=== PATIENT | female | born 1930 | race Caucasian/White ===

== ENCOUNTER 2016-09-25 13:32 | Emergency (ER) | payer OTHER ==
[2016-09-25 13:37] VITALS: TEMP 98.2; BMI 24.5
--- NOTE | 2016-09-25 14:21 | PDOC ---
History of Present Illness - General Chief Complaint: Chest Pain Stated Complaint: CHEST PAIN, LT ARM PAIN Time Seen by Provider: 09/25/16 14:06 History Source: Patient Exam Limitations: No Limitations - History of Present Illness Initial Comments: CHIEF COMPLAINT: 86 y/o afebrile female with PMH alzheimer's, HTN, HLD, hypothyroidism BIB daughter for left shoulder pain. HISTORY OF PRESENT ILLNESS: Daughter states the patient has been c/o left shoulder pain for the past 2 weeks. She gave her tylenol yesterday and it seemed to help but when she woke up this morning she was in a lot of pain. the patient's daughter denies fever, cough, trauma to shoulder, fall, CP, SOB. Vital signs on arrival are within normal limits. REVIEW OF SYSTEMS: GENERAL/CONSTITUTIONAL: No fever/chills. No weakness. No weight change. HEAD, EYES, EARS, NOSE AND THROAT: No change in vision. No ear pain or discharge. No sore throat. CARDIOVASCULAR: No chest pain or shortness of breath. RESPIRATORY: No cough, wheezing, or hemoptysis. GASTROINTESTINAL: No abd pain, nausea, vomiting, diarrhea. GENITOURINARY: No dysuria, frequency, or change in urination. MUSCULOSKELETAL: +left shoulder pain. No neck or back pain. SKIN: No rash or easy bruising. PHYSICAL EXAM: GENERAL: The patient is awake, alert, and fully oriented, in no acute distress. HEAD: Normal with no signs of trauma. ENT: Pupils equal, round and reactive to light, extraocular movements intact, sclera anicteric, conjunctiva clear. Neck supple. No midline cervical spine TTP. LUNGS: Clear to auscultation bilaterally. Normal excursion. No respiratory distress or use of accessory muscles. CV: RRR, S1/S2, no MRG. Cap refill < 2 sec. ABDOMEN: Soft, non-distended, non-tender even to deep palpation, no hepatomegaly or splenomegaly, no masses. EXTREMITIES: Pain with palpation of left AC joint. Pt cannot abduct her left arm > 90 degrees secondary to pain. NEUROLOGICAL: Normal speech, normal gait. CN II-XII grossly intact. PSYCH: Normal mood, normal affect. SKIN: Warm, dry, normal turgor, no rashes or lesions noted. Past History - Past Medical History Allergies/Adverse Reactions: Allergies Allergy/AdvReac Type Severity Reaction Status Date / Time No Known Allergies Allergy Verified 09/25/16 13:38 Home Medications: Ambulatory Orders Aspirin Chewable [May Children's Aspirin] 81 mg PO DAILY 02/04/12 Simvastatin 40 mg PO HS 02/04/12 Atenolol 50 mg PO DAILY #0 tablet 02/07/12 Cetirizine HCl [Zyrtec -] 10 mg PO DAILY 04/14/16 Escitalopram Oxalate [Lexapro -] 10 mg PO DAILY 04/14/16 Rivastigmine [Exelon Patch 9.5 mg/24 Hours] 1 each TD DAILY 04/14/16 HTN: Yes Hypercholesterolemia: Yes - Psycho/Social/Smoking Cessation Hx Anxiety: No Suicidal Ideation: No Smoking Status: No Smoking History: Never smoked Have you smoked in the past 12 months: No Number of Cigarettes Smoked Daily: 0 Information on smoking cessation initiated: No Hx Alcohol Use: No Drug/Substance Use Hx: No Substance Use Type: None Hx Substance Use Treatment: No Cardiac Specific PMH - Complaint Specific PMHX Angina: No Cardiac Arrhythmia: No GERD: No Peripheral Vascular Disease: No *Physical Exam - Vital Signs Last Vital Signs Temp Pulse Resp BP Pulse Ox 98.2 F 71 18 150/71 99 09/25/16 13:34 09/25/16 13:34 09/25/16 13:34 09/25/16 13:34 09/25/16 13:34 Heart Score/ECG Review - ECG Intrepretation Comment:: Twelve-lead EKG was performed and reviewed by Dr. Quarles. There is normal sinus rhythm with a normal rate. The axis is normal. The intervals are normal. There are no ST or T wave abnormalities. Impression: Normal twelve-lead EKG ED Treatment Course - LABORATORY CBC & Chemistry Diagram: 09/25/16 14:40 09/25/16 14:40 - ADDITIONAL ORDERS Additional order review: Laboratory Results 09/25/16 14:40 Sodium 137 Potassium 4.1 Chloride 103 Carbon Dioxide 28 Anion Gap 6 L BUN 18 Creatinine 1.0 Creat Clearance w eGFR 52.82 Random Glucose 111 H D Calcium 9.1 Total Bilirubin 0.6 D AST 20 D ALT 21 D Alkaline Phosphatase 51 Creatine Kinase 114 Troponin I < 0.02 B-Natriuretic Peptide 899.09 H Total Protein 7.1 Albumin 3.7 09/25/16 14:40 RBC 4.12 MCV 94.3 MCHC 32.9 RDW 12.9 MPV 10.5 Neutrophils % 64.0 D Lymphocytes % 21.0 D Monocytes % 10.0 - Medications Given in the ED: ED Medications Discontinued Medications Generic Name Dose Route Start Last Admin Trade Name Veto PRN Reason Stop Dose Admin Ketorolac Tromethamine 30 mg 09/25/16 14:22 09/25/16 15:01 Toradol Injection - IVPUSH 09/25/16 14:23 30 mg ONCE ONE Administration Medical Decision Making - Medical Decision Making A/P: 86 y/o female with left shoulder injury. Most likely musculoskeletal in nature. Possibly rotator cuff strain. Plan is as follows: 1. IV toradol 2. labs 3. EKG EKG normal Labs unremarkable except for BNP of 899. No prior for comparison. The patient states she feels much better. Pt lying flat in the bed without SOB. She continues to deny CP, cough, hemoptysis. Will discharge her to home. Suggested she f/u with her PCP regarding her BNP. Instructed her daughter to give her the Meloxicam that her doctor prescribed to the patient for her shoulder pain and apply heat to the affected area to help with pain. Also instructed the daughter to make sure the patient moves her shoulder to prevent frozen shoulder. Instructed her to return to the ER with any worsening or concerning symptoms. The patient's daughter verbalizes understanding of all instructions, has no further questions and is awaiting discharge. *DC/Admit/Observation/Transfer Diagnosis at time of Disposition: Shoulder sprain or strain - Discharge Dispostion Disposition: HOME Condition at time of disposition: Improved - Referrals Referrals: Diana Espino [Primary Care Provider] - Call tomorrow - Patient Instructions Printed Discharge Instructions: DI for Shoulder Pain, DI for Shoulder Sprain Additional Instructions: Discharge Instructions: -Gave the patient her Meloxicam as prescribed daily for shoulder pain -Apply heat to the affected shoulder to help with pain -Follow up with her physician tomorrow -Return to the ER with any worsening or concerning symptoms.
[2016-09-25] MEDS ORDERED: KETOROLAC TROMETHAMINE 30 MG/1 ML VIAL IVPUSH ONE (14:22)
[2016-09-25] MEDS ORDERED: KETOROLAC TROMETHAMINE 30 MG/1 ML VIAL ONE (14:40)
[2016-09-25 14:59] LABS: MCHC 32.9 g/dl (32.0-36.0); MEAN CELL VOLUME 94.3 fl (80-96); MEAN PLT VOLUME 10.5 fl (7.5-11.1); PLATELET COUNT 162 K/MM3 (134-434); RDW 12.9 % (11.6-15.6); WHITE BLOOD COUNT 10.5 K/mm3 (4.0-10.0)
[2016-09-25 15:22] LABS: ALBUMIN 3.7 g/dl (3.4-5.0); ANION GAP 6 (8-16); BILIRUBIN,TOTAL 0.6 mg/dL (0.2-1.0); CALCIUM 9.1 mg/dL (8.5-10.1); CO2 28 mmol/L (21-32); GLUCOSE,RANDOM 111 mg/dL (74-106); SGOT/AST 20 U/L (15-37); SGPT/ALT 21 U/L (12-78)
[2016-09-25 15:25] LABS: ALK PHOS 51 U/L (45-117); TOT PROT 7.1 g/dl (6.4-8.2); TROPONIN I < 0.02 ng/ml (0.00-0.05)
[2016-09-25 15:53] LABS: METAMYELOCYTE 1 % (0-2); PLATELET ESTIMATE ADEQUATE (NORMAL)
[2016-09-25 16:50] VITALS: BP 149/68; PULSE 72
--- NOTE | 2016-09-26 09:48 | EKG ---
Test Reason : Blood Pressure : / mmHG Vent. Rate : 064 BPM Atrial Rate : 064 BPM P-R Int : 196 ms QRS Dur : 076 ms QT Int : 390 ms P-R-T Axes : 048 011 028 degrees QTc Int : 402 ms NORMAL SINUS RHYTHM NORMAL ECG WHEN COMPARED WITH ECG OF 29-MAR-2014 16:42, NO SIGNIFICANT CHANGE WAS FOUND Confirmed by ALISHA MULTANI MD ([id number]) on 09/26/2016 9:47:58 AM Referred By: Overread By: ALISHA MULTNAI MD
== END 2016-09-25 16:51 | disposition home or self-care (01) ==
LOC: JER 13:32
PROC: 3E0333Z Introduction of Anti-inflammatory into Peripheral Vein, Percutaneous Approach (ICD-10-PCS; principal; 2016-09-25)
DX: S43.492A Other sprain of left shoulder joint, initial encounter (principal); I10 Essential (primary) hypertension; E78.00 Pure hypercholesterolemia, unspecified; E03.9 Hypothyroidism, unspecified; G30.8 Other Alzheimer's disease; F02.80 Dementia in other diseases classified elsewhere, unspecified severity, without behavioral disturbance, psychotic disturbance, mood disturbance, and anxiety
CPT/HCPCS: 36415; 80053; 82550; 83880; 84484; 85025; 93005; 93010; 96374; 99282-25

== ENCOUNTER 2016-09-28 10:31 | Emergency (ER) | payer OTHER ==
[2016-09-28 10:37] VITALS: BP 146/63; PULSE 67; TEMP 98.1; BMI 23.8
--- NOTE | 2016-09-28 11:26 | PDOC ---
History of Present Illness - General Chief Complaint: Pain Stated Complaint: PAIN Time Seen by Provider: 09/28/16 11:21 History Source: Patient Exam Limitations: No Limitations - History of Present Illness Initial Comments: 09/28/16 11:45 \ 09/28/16 11:48 My Chief Complaint: left shoulder pain History of Present Illness: Pt. is a 86-year-old female with a history of hyperlipidemia, HTN and Alzheimer's here today with her daughter due to worsening left shoulder pain. Patient was seen a few days ago by orthopedist Dr. Oneal was given a cortisone shot according to daughter and left shoulder. Patient has been taking Mobic's once a day 7.5 mg without relief of pain. Daughter reports that she is not moving her left shoulder normally and when moving it she winces in pain. Patient has had no falls or any new injuries. Dr. Oneal told the daughter that it would take approximately one week for symptoms to be relieved. Gross deformity of left shoulder or left arm noted. 09/28/16 12:12 09/28/16 22:59 09/28/16 23:00 Timing/Duration: getting worse Severity: moderate Associated Symptoms: reports: other (left shoulder pain with decreased range of motion ) Past History - Past Medical History Allergies/Adverse Reactions: Allergies Allergy/AdvReac Type Severity Reaction Status Date / Time No Known Allergies Allergy Verified 09/28/16 10:36 Home Medications: Ambulatory Orders Aspirin Chewable [May Children's Aspirin] 81 mg PO DAILY 02/04/12 Simvastatin 40 mg PO HS 02/04/12 Atenolol 50 mg PO DAILY #0 tablet 02/07/12 Cetirizine HCl [Zyrtec -] 10 mg PO DAILY 04/14/16 Escitalopram Oxalate [Lexapro -] 10 mg PO DAILY 04/14/16 Rivastigmine [Exelon Patch 9.5 mg/24 Hours] 1 each TD DAILY 04/14/16 HTN: Yes Hypercholesterolemia: Yes - Psycho/Social/Smoking Cessation Hx Anxiety: No Suicidal Ideation: No Smoking Status: No Smoking History: Never smoked Have you smoked in the past 12 months: No Number of Cigarettes Smoked Daily: 0 Information on smoking cessation initiated: No Hx Alcohol Use: No Drug/Substance Use Hx: No Substance Use Type: None Hx Substance Use Treatment: No Review of Systems - Review of Systems Able to Perform ROS?: Yes Constitutional: No: Symptoms Reported HEENTM: No: Symptoms Reported Respiratory: No: Symptoms reported Cardiac (ROS): No: Symptoms Reported ABD/GI: No: Symptoms Reported Musculoskeletal: Yes: Joint Pain (left shoulder pain with decreased ROM in all directions ) Integumentary: No: Symptoms Reported *Physical Exam - Vital Signs Last Vital Signs Temp Pulse Resp BP Pulse Ox 98.1 F 67 18 146/63 99 09/28/16 10:35 09/28/16 10:35 09/28/16 10:35 09/28/16 10:35 09/28/16 10:35 - Physical Exam General Appearance: Yes: Appropriately Dressed Respiratory/Chest: positive: Lungs Clear, Normal Breath Sounds. negative: Chest Tender, Respiratory Distress Cardiovascular: positive: Regular Rhythm, Regular Rate, S1, S2 Comments:: 09/28/16 12:14 left radial pulse 4 + Extremity: positive: Normal Capillary Refill, Normal Inspection, Tender (left shoulder ). negative: Normal Range of Motion (left shoulder decreased range of motion in all directions ) Integumentary: positive: Normal Color Neurologic: positive: Alert, Normal Response, Responsive, Other (decreased range of motion left shoulder ) Medical Decision Making - Medical Decision Making 09/28/16 12:15 PLAN : xray left shoulder no fracture noted Degenerative changes possible jt effusion acetaminophen 650 mg po now follow up with ortho 09/28/16 12:[address] Lynch he recommends that mobic be increased from 7.5 mg daily to bid for one week follow up next week with 09/28/16 12:28 09/28/16 23:01 09/28/16 23:01 *DC/Admit/Observation/Transfer Diagnosis at time of Disposition: Shoulder joint painful on movement Qualifiers: Laterality: left Qualified Code(s): M25.512 - Pain in left shoulder - Discharge Dispostion Disposition: HOME Condition at time of disposition: Stable - Referrals Referrals: Diana Espino [Primary Care Provider] - Ronni Oneal MD [Staff Physician] - - Patient Instructions Additional Instructions: elevate on pillow at night follow up with Dr. Oneal in one week Increase Mobic to 7.5 mg twice daily take after eating she can take acetaminophen 650 mg every 6 hours as needed for pain if not better with increase of mobic Daughter voiced understanding of discharge instructions and all questions were answered
[2016-09-28] MEDS ORDERED: ACETAMINOPHEN 325 MG TABLET (FP) PO ONE (12:12)
[2016-09-28] MEDS ORDERED: ACETAMINOPHEN 325 MG TABLET (FP) ONE (12:21)
== END 2016-09-28 12:33 | disposition home or self-care (01) ==
LOC: JERFT 10:31
DX: M25.512 Pain in left shoulder (principal); I10 Essential (primary) hypertension; E78.00 Pure hypercholesterolemia, unspecified; G30.8 Other Alzheimer's disease; F02.80 Dementia in other diseases classified elsewhere, unspecified severity, without behavioral disturbance, psychotic disturbance, mood disturbance, and anxiety
CPT/HCPCS: 73030-TC-LT; 99281-25

== ENCOUNTER 2016-09-29 19:06 | Emergency (ER) | payer OTHER ==
[2016-09-29 19:44] VITALS: BP 148/72; PULSE 74; TEMP 98.2; BMI 24.5
--- NOTE | 2016-09-29 20:15 | PDOC ---
History of Present Illness - General History Source: Patient, Family Exam Limitations: Dementia - History of Present Illness Initial Comments: 09/29/16 21:53 The patient is an 86-year old-female, accompanied by family, with a significant past medical history of dementia(alzheimers), hypertension, hypercholesterolemia, and hypothyroidism, who presents to the emergency department with left arm pain that began 4 days ago. The patient reports that her pain radiates to her neck and down her left arm. As per daughter, the patient was brought to her orthopedist, Dr. Oneal, a few days ago, where she was administered a shot of cortisone. As per daughter, the patient was told to return in a month for another dose of cortisone if she experienced no relief. After no relief, the patient presented to the emergency department a day ago for similar pain. The patient reports pain upon movement of arm and does not report any alleviating factors. The patients daughter denies the patient has been experiencing any associated chest pain or shortness of breath. Since the onset of the pain, the patients daughter reports the patient has been experiencing decreased appetite. The patient also presents with a fever, but denies any chills, headache, or dizziness. She denies nausea, vomit, diarrhea and constipation. Allergies: None reported. Social History: No history of smoking, recreational drug use, or ETOH consumption PCP: Dr. Diana Espino <Chris Forbes - Last Filed: 09/29/16 21:52> <Krystle Howard - Last Filed: 09/30/16 01:15> - General Chief Complaint: Pain Stated Complaint: L SHOULDER PAIN Time Seen by Provider: 09/29/16 20:15 Past History <Chris Forbes - Last Filed: 09/29/16 21:52> - Past Medical History HTN: Yes Hypercholesterolemia: Yes - Psycho/Social/Smoking Cessation Hx Anxiety: No Suicidal Ideation: No Smoking Status: No Smoking History: Never smoked Have you smoked in the past 12 months: No Number of Cigarettes Smoked Daily: 0 Information on smoking cessation initiated: No Hx Alcohol Use: No Drug/Substance Use Hx: No Substance Use Type: None Hx Substance Use Treatment: No <Krystle Howard - Last Filed: 09/30/16 01:15> - Past Medical History Allergies/Adverse Reactions: Allergies Allergy/AdvReac Type Severity Reaction Status Date / Time No Known Allergies Allergy Verified 09/29/16 19:37 Home Medications: Ambulatory Orders Aspirin Chewable [May Children's Aspirin] 81 mg PO DAILY 02/04/12 Simvastatin 40 mg PO HS 02/04/12 Atenolol 50 mg PO DAILY #0 tablet 02/07/12 Cetirizine HCl [Zyrtec -] 10 mg PO DAILY 04/14/16 Escitalopram Oxalate [Lexapro -] 10 mg PO DAILY 04/14/16 Rivastigmine [Exelon Patch 9.5 mg/24 Hours] 1 each TD DAILY 04/14/16 Oxycodone HCl/Acetaminophen [Percocet 5/325 -] 1 tab PO Q6H #20 tablet MDD 4 03/10 Review of Systems - Review of Systems Able to Perform ROS?: Yes Comments:: 09/29/16 21:53 GENERAL/CONSTITUTIONAL: +Fever. No chills. No weakness. HEAD, EYES, EARS, NOSE AND THROAT: No change in vision. No ear pain or discharge. No sore throat. CARDIOVASCULAR: No chest pain or shortness of breath. RESPIRATORY: No cough, wheezing, or hemoptysis. GASTROINTESTINAL: No nausea, vomiting, diarrhea or constipation. GENITOURINARY: No dysuria, frequency, or change in urination. MUSCULOSKELETAL: +Left arm pain, +joint pain, and +neck pain. No joint or muscle swelling. No back pain. SKIN: No rash NEUROLOGIC: No headache, vertigo, loss of consciousness, or change in strength/ sensation. ENDOCRINE: No increased thirst. No abnormal weight change. HEMATOLOGIC/LYMPHATIC: No anemia, easy bleeding, or history of blood clots. ALLERGIC/IMMUNOLOGIC: No hives or skin allergy. <Chris Forbes - Last Filed: 09/29/16 21:52> *Physical Exam - Vital Signs Last Vital Signs Temp Pulse Resp BP Pulse Ox 98.2 F 74 14 148/72 96 09/29/16 19:38 09/29/16 19:38 09/29/16 19:38 09/29/16 19:38 09/29/16 19:38 <Chris Forbes - Last Filed: 09/29/16 21:52> - Vital Signs Last Vital Signs Temp Pulse Resp BP Pulse Ox 98.2 F 74 14 148/72 96 09/29/16 19:38 09/29/16 19:38 09/29/16 19:38 09/29/16 19:38 09/29/16 19:38 <Krystle Howard - Last Filed: 09/30/16 01:15> ED Treatment Course - LABORATORY CBC & Chemistry Diagram: 09/29/16 21:20 09/29/16 21:20 - ADDITIONAL ORDERS Additional order review: 09/29/16 21:20 RBC 4.07 MCV 93.0 MCHC 32.8 RDW 13.1 MPV 10.6 Neutrophils % 68.6 Lymphocytes % 15.4 D Monocytes % 15.5 H Eosinophils % 0.3 Basophils % 0.2 - Medications Given in the ED: ED Medications Discontinued Medications Generic Name Dose Route Start Last Admin Trade Name Veto PRN Reason Stop Dose Admin Oxycodone/Acetaminophen 2 combo 09/29/16 21:00 09/29/16 21:04 Percocet 5/325 - PO 09/29/16 21:01 2 combo ONCE ONE Administration <Chris Forbes - Last Filed: 09/29/16 21:52> - LABORATORY CBC & Chemistry Diagram: 09/29/16 21:20 09/29/16 21:20 <Krystle Howard - Last Filed: 09/30/16 01:15> Medical Decision Making - Medical Decision Making 09/30/16 01:09 Pt has dementia and alzheimers disease and she has been complaining of left shoulder pain for over a week. She was seen by her PMD Diana Espino and she was referred to orthopedist Dr. Oneal, who gave her a cortisone injection in the shoulder. Pt came to the ER 3 times and she was treated with toradol with no relief. Pt returns again today and this is her 4th visit to the ER. Pt's blood tests were repeated. SHe has a normal and lower WBC count than previously. She has an elevated CPK, but she has normal troponin and she doesn' t complain of chest pain. I discussed this blood result with her PMD, who agrees that this may be due to the IM injection of cortisone, I think this may also be due to patient's movement and restlessness. Pt's pain incidentally improved with percocet, and she appears vastly improved in the ER and she will be sent home with the same meds. Follow with PMD and with orthopedist as an outpatient. <AnitaKrystle - Last Filed: 09/30/16 01:15> *DC/Admit/Observation/Transfer - Attestations Scribe Attestion: 09/29/16 21:54 Documentation prepared by Chris Forbes, acting as medical insurance coding specialist for Krystle Howard MD. <Chris Forbes - Last Filed: 09/29/16 21:52> - Discharge Dispostion Admit: No <HowardKrystle dewitt - Last Filed: 09/30/16 01:15> Diagnosis at time of Disposition: Shoulder joint painful on movement - Prescriptions Prescriptions: Oxycodone HCl/Acetaminophen [Percocet 5/325 -] 1 tab PO Q6H #20 tablet MDD 4 - Referrals Referrals: Diana Espino [Primary Care Provider] - Addendum entered and electronically signed by Chris Forbes SCRIBE 09/30/16 04:43: Physical Exam Vital Sings: Vital Signs Temperature 98.2 F 09/29/16 19:38 Pulse Rate 74 09/29/16 19:38 Respiratory Rate 14 09/29/16 19:38 Blood Pressure 148/72 09/29/16 19:38 O2 Sat by Pulse Oximetry (%) 96 09/29/16 19:38 GENERAL: The patient is awake, alert, and fully oriented, in no acute distress. HEAD: Normal with no signs of trauma. EYES: Pupils equal, round and reactive to light, extraoccular movements intact, sclera anicteric, conjunctiva clear with no pallor. ENT: Ears normal, nares patent, oropharynx clear without exudates. Moist mucous membranes. NECK: Normal range of motion, supple without lymphadenopathy, JVD, or masses. LUNGS: Breath sounds equal, clear to auscultation bilaterally. No wheeze/ crackles. HEART: Regular rate and rhythm, normal S1 and S2 without murmur or rub. ABDOMEN: Soft/nontender/nondistended. BS wnl. No guarding or rebound. No palpable masses. No hepatosplenomegaly. EXTREMITIES: +Pain with movement of left arm, however patient is constantly raising left shoulder. Normal range of motion, no edema. No clubbing or cyanosis. No cords or tenderness. No swelling, erythema, deformities. NEUROLOGICAL: Cranial nerves II through XII grossly intact. Normal speech, normal gait. PSYCH: Normal mood, normal affect. SKIN: Warm, Dry, normal turgor, no rashes or lesions noted. Labs: CBC, BMP 09/29/16 21:20 09/29/16 21:20
[2016-09-29] MEDS ORDERED: OXYCODONE/APAP 5/325MG COMBO TABLET PO ONE (21:00)
[2016-09-29] MEDS ORDERED: OXYCODONE/APAP 5/325MG COMBO TABLET ONE (21:06)
[2016-09-29 21:29] LABS: BASOPHIL 0.2 % (0-2.0); EOSINOPHIL 0.3 % (0-4.5); MCH 30.5 pg (25.7-33.7); MCHC 32.8 g/dl (32.0-36.0); MEAN PLT VOLUME 10.6 fl (7.5-11.1); NEUTROPHILS 68.6 % (42.8-82.8); PLATELET COUNT 214 K/MM3 (134-434); RDW 13.1 % (11.6-15.6); WHITE BLOOD COUNT 7.9 K/mm3 (4.0-10.0)
[2016-09-29 22:13] LABS: ALBUMIN 3.2 g/dl (3.4-5.0); BILIRUBIN,TOTAL 0.4 mg/dL (0.2-1.0); CALCIUM 9.2 mg/dL (8.5-10.1); TOT PROT 7.2 g/dl (6.4-8.2)
[2016-09-29 22:14] LABS: TROPONIN I < 0.02 ng/ml (0.00-0.05)
[2016-09-29] MEDS ORDERED: FUROSEMIDE 40 MG/4 ML INJECTABLE VIAL IVPUSH ONE (22:32)
--- NOTE | 2016-09-30 10:31 | EKG ---
Test Reason : Blood Pressure : / mmHG Vent. Rate : 070 BPM Atrial Rate : 070 BPM P-R Int : 192 ms QRS Dur : 066 ms QT Int : 364 ms P-R-T Axes : 056 024 022 degrees QTc Int : 393 ms NORMAL SINUS RHYTHM NORMAL ECG WHEN COMPARED WITH ECG OF 25-SEP-2016 13:53, NO SIGNIFICANT CHANGE WAS FOUND Confirmed by JOHN HUGO MD ([id number]) on 09/30/2016 10:30:34 AM Referred By: Confirmed By:JOHN HUGO MD
--- NOTE | 2016-10-01 14:42 | PN ---
Progress Note (short form) - Note Progress Note: I was paged today 10/01 by pt's daughter Malinda [phone], pt came to ER 2 days ago shoulder pain sent home on po percocet prn; saw ortho last week and had a shoulder inj, pt is on percocet q 6h prn but still with a lot of pain, also sleepy from percocet; I dw Malinda risks of tolerance, dependence, falls, respiratory depression, aspiration, constipation etc with opiates and I advised to hold percocet (opiates) if pt sleepy or lethargic and also I d/w her risks of falls and falls pfx; I strongly advised her to bring Meghana back to ER pato for further eval and treatment; pt asked me for phone nr of julito and [facility] collier , I gave her dr Oneal or dr Cris vila and dr Jorje Ferreira and 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
== END 2016-09-29 23:26 | disposition home or self-care (01) ==
LOC: JER 19:06
DX: I10 Essential (primary) hypertension (principal); E78.00 Pure hypercholesterolemia, unspecified; E03.9 Hypothyroidism, unspecified; G30.9 Alzheimer's disease, unspecified; F02.80 Dementia in other diseases classified elsewhere, unspecified severity, without behavioral disturbance, psychotic disturbance, mood disturbance, and anxiety
CPT/HCPCS: 36415; 80053; 82550; 82553; 83880; 84484; 85025; 93005; 93010; 99282-25

== ENCOUNTER 2016-10-06 15:01 | Inpatient (IN) | payer OTHER ==
[2016-10-06 15:26] VITALS: BMI 21.9
[2016-10-06 17:15] LABS: BASOPHIL 1.1 % (0-2.0); EOSINOPHIL 1.1 % (0-4.5); MCH 29.8 pg (25.7-33.7); MEAN CELL VOLUME 93.1 fl (80-96); MEAN PLT VOLUME 10.3 fl (7.5-11.1); NEUTROPHILS 56.7 % (42.8-82.8); PLATELET COUNT 421 K/MM3 (134-434); RDW 13.2 % (11.6-15.6); WHITE BLOOD COUNT 8.7 K/mm3 (4.0-10.0)
[2016-10-06] MEDS ORDERED: KETOROLAC TROMETHAMINE 30 MG/1 ML VIAL IVPUSH ONE (17:19)
--- NOTE | 2016-10-06 17:24 | PDOC ---
*Physical Exam - Vital Signs Last Vital Signs Temp Pulse Resp BP Pulse Ox 97.5 F L 59 L 18 138/53 99 10/06/16 15:20 10/06/16 15:20 10/06/16 15:20 10/06/16 15:20 10/06/16 15:20 ED Treatment Course - LABORATORY CBC & Chemistry Diagram: 10/10/16 07:48 10/10/16 07:48 - ADDITIONAL ORDERS Additional order review: 10/06/16 16:54 RBC 3.86 MCV 93.1 MCHC 32.0 RDW 13.2 MPV 10.3 Neutrophils % 56.7 Lymphocytes % 25.2 D Monocytes % 15.9 H Eosinophils % 1.1 D Basophils % 1.1 D Medical Decision Making - Medical Decision Making 10/06/16 17:23 Pt seen by the Advanced Practice Provider under my direct supervision Ancillary studies reviewed I agree with plan as outlined by the Advanced Practice Provider DAVID Miguel *DC/Admit/Observation/Transfer Diagnosis at time of Disposition: Shoulder joint painful on movement, Dehydration - Discharge Dispostion Condition at time of disposition: Stable
--- NOTE | 2016-10-06 17:25 | PDOC ---
History of Present Illness - General Chief Complaint: Weakness Stated Complaint: LT SHOULDER PAIN (PCP SENT) Time Seen by Provider: 10/06/16 16:28 History Source: Patient, Family - History of Present Illness Occurred: reports: other Severity: reports: severe Upper Extremity Pain Location: left: shoulder Past History - Past Medical History Allergies/Adverse Reactions: Allergies Allergy/AdvReac Type Severity Reaction Status Date / Time No Known Allergies Allergy Verified 10/06/16 15:19 Home Medications: Ambulatory Orders Aspirin Chewable [May Children's Aspirin] 81 mg PO DAILY 02/04/12 Simvastatin 40 mg PO HS 02/04/12 Atenolol 50 mg PO DAILY #0 tablet 02/07/12 Cetirizine HCl [Zyrtec -] 10 mg PO DAILY 04/14/16 Escitalopram Oxalate [Lexapro -] 10 mg PO DAILY 04/14/16 Rivastigmine [Exelon Patch 9.5 mg/24 Hours] 1 each TD DAILY 04/14/16 Oxycodone HCl/Acetaminophen [Percocet 5/325 -] 1 tab PO Q6H #20 tablet MDD 4 03/10 HTN: Yes Hypercholesterolemia: Yes - Psycho/Social/Smoking Cessation Hx Anxiety: No Suicidal Ideation: No Smoking Status: No Smoking History: Never smoked Have you smoked in the past 12 months: No Number of Cigarettes Smoked Daily: 0 Information on smoking cessation initiated: No Hx Alcohol Use: No Drug/Substance Use Hx: No Substance Use Type: None Hx Substance Use Treatment: No Review of Systems - Review of Systems Constitutional: No: Chills, Fever, Malaise, Weakness Respiratory: No: Cough, Shortness of Breath Cardiac (ROS): No: Chest Pain ABD/GI: No: Nausea, Vomiting Musculoskeletal: Yes: Joint Pain *Physical Exam - Vital Signs Last Vital Signs Temp Pulse Resp BP Pulse Ox 97.5 F L 59 L 18 138/53 99 10/06/16 15:20 10/06/16 15:20 10/06/16 15:20 10/06/16 15:20 10/06/16 15:20 - Physical Exam General Appearance: Yes: Appropriately Dressed. No: Apparent Distress HEENT: positive: Normal Voice Neck: positive: Supple Respiratory/Chest: positive: Lungs Clear, Normal Breath Sounds. negative: Respiratory Distress Cardiovascular: positive: Regular Rate, S1, S2 Gastrointestinal/Abdominal: positive: Soft. negative: Tender Extremity: positive: Tender (w/ LROM to L shoulder) Integumentary: positive: Dry, Warm. negative: Swelling Neurologic: positive: Fully Oriented, Alert, Normal Mood/Affect ED Treatment Course - LABORATORY CBC & Chemistry Diagram: 10/06/16 16:54 10/06/16 16:54 - ADDITIONAL ORDERS Additional order review: 10/06/16 16:54 RBC 3.86 MCV 93.1 MCHC 32.0 RDW 13.2 MPV 10.3 Neutrophils % 56.7 Lymphocytes % 25.2 D Monocytes % 15.9 H Eosinophils % 1.1 D Basophils % 1.1 D - RADIOLOGY Radiology Studies Ordered: Category Date Time Status CHEST X-RAY PORTABLE* [RAD] Stat Radiology 10/06/16 17:19 Ordered Medical Decision Making - Medical Decision Making 10/06/16 17:20 86 yo F, h/o chronic L shoulder pain w/ possible tendinitis on XR 10/09, HTN, on asa, HLD, p/w her usual L shoulder pain, not being relieved w/ percocet. No swelling, f/c, CP or SOB. Pt states she was sent to ED to be admitted for dehydration though denies any weakness or dizziness at this time. See exam Chronic L shoulder pain ?tendinitis on XR On percocet at home Sig ttp to shoulder diffusely w/ LROM 2/2 pain -toradol ? Lethargy Stable and lert in ED -will check basic labs and discuss dispo w/ PMD 10/06/16 18:43 Labs unremarkable except for K of 5.2, Cr wnl (ekg in progress). Patient continues to complain of severe left shoulder pain despite attempted pain control in ED. Will give small dose of morphine and contact Dr. Espino for disposition. 10/06/16 18:51 Patient's daughter now in ED and states besides shoulder pain, pt also has appeared more lethargic over the past 2 weeks. Family declines morphine in ED. Contacted Dr. Espino regarding disposition and patient admitted for possible ortho consult for chronic shoulder pain *DC/Admit/Observation/Transfer Diagnosis at time of Disposition: Dehydration Shoulder joint painful on movement Qualifiers: Laterality: left Qualified Code(s): M25.512 - Pain in left shoulder - Discharge Dispostion Condition at time of disposition: Stable Admit: Yes - Referrals Referrals: Seth Espino MD [Primary Care Provider] -
[2016-10-06] MEDS ORDERED: KETOROLAC TROMETHAMINE 60 MG/2 ML VIAL ONE (17:51)
[2016-10-06 18:05] LABS: ALBUMIN 2.8 g/dl (3.4-5.0); BILIRUBIN,TOTAL 0.4 mg/dL (0.2-1.0); CALCIUM 9.4 mg/dL (8.5-10.1); TOT PROT 7.5 g/dl (6.4-8.2)
[2016-10-06] MEDS ORDERED: morphine CARPU-JECT 4 MG/1 ML DISP.SYRIN IVPUSH ONE (18:42)
[2016-10-06] MEDS ORDERED: morphine CARPU-JECT 2 MG/1 ML DISP.SYRIN ONE (18:44)
[2016-10-06 19:38] LABS: URINE APPEARANCE CLEAR; URINE BILIRUBIN NEGATIVE (NEGATIVE); URINE BLOOD NEGATIVE (NEGATIVE); URINE COLOR YELLOW; URINE GLUCOSE (UA) NEGATIVE (NEGATIVE); URINE KETONE TRACE (NEGATIVE); URINE NITRITE NEGATIVE (NEGATIVE); URINE PROTEIN NEGATIVE (NEGATIVE); URINE UROBILINOGEN 4.0 E.U/dl E.U./dl (0.2-1.0)
[2016-10-06] MEDS: SODIUM CHLORIDE 1,000 ML IV SCH (19:56)
[2016-10-06 20:00] LABS: URINE LEUK ESTERASE 2+ (NEGATIVE)
[2016-10-06 20:46] LABS: GRANULAR CASTS 3 /lpf; URINE HYALINE CAST 3 /lpf; URINE MUCUS RARE; URINE RBC 4 /hpf (0-3); URINE WBC <1 /hpf (3-5)
[2016-10-06] MEDS: KETOROLAC TROMETHAMINE 15 MG/ML VIAL IVPB PRN (22:00)
[2016-10-06] MEDS: ATORVASTATIN CA 20 MG TABLET (FP) PO SCH (22:57)
[2016-10-06] MEDS: HEPARIN NA (PORCINE) 5,000 UNITS/ML 1ML VIAL SQ SCH (22:57)
[2016-10-07] MEDS ORDERED: morphine CARPU-JECT 2 MG/1 ML DISP.SYRIN IM ONE (02:30)
[2016-10-07] MEDS ORDERED: methylPREDNISolone NA SUCC 40 MG/1 ML VIAL IVPB ONE (02:30)
[2016-10-07] MEDS: LIDOCAINE 5% TOPICAL PATCH TP SCH ×2 (03:18→10:00)
[2016-10-07] MEDS: KETOROLAC TROMETHAMINE 15 MG/ML VIAL IVPB PRN ×2 (05:04→13:59)
[2016-10-07] MEDS: SODIUM CHLORIDE 1,000 ML IV SCH (05:04)
[2016-10-07] MEDS: methylPREDNISolone NA SUCC 40 MG/1 ML VIAL IVPB SCH ×2 (07:01→18:10)
[2016-10-07 07:52] LABS: BASOPHIL 0.3 % (0-2.0); EOSINOPHIL 0.2 % (0-4.5); MCH 31.4 pg (25.7-33.7); MCHC 34.1 g/dl (32.0-36.0); NEUTROPHILS 87.9 % (42.8-82.8); PLATELET COUNT 412 K/MM3 (134-434); RDW 12.6 % (11.6-15.6); WHITE BLOOD COUNT 8.4 K/mm3 (4.0-10.0)
--- NOTE | 2016-10-07 09:23 | PN ---
Progress Note (short form) - Note Progress Note: Pt seen and examined. She is well known to me. I saw her in my office yesterday. In summary, she is an 86 yo F with Alzheimer's dementia. She has left shoulder pain, and RTC arthropathy. I gave her a cortisone injection a month ago, it did not help. The family and the pt are refusing another cortisone injection, P.T., or surgery. Therefore no MRI necessary (i.e. we are not going to do anything different regardless of the results) The family is finding the pt increasingly difficult to deal with at home, for example she wakes them up many times during the night. The family doesn't want to take care of her at home any more. There is nothing we can do for the shoulder. I am only recommending a Pain Management consultation, and placement in a rn long term care NH.
[2016-10-07] MEDS: HEPARIN NA (PORCINE) 5,000 UNITS/ML 1ML VIAL SQ SCH ×2 (10:06→22:24)
[2016-10-07] MEDS: ASPIRIN 81 MG CHEWABLE TABLETS PO SCH (10:06)
[2016-10-07] MEDS: PANTOPRAZOLE 20 MG TABLET (FP) PO SCH (10:06)
[2016-10-07] MEDS: ATENOLOL 50 MG TABLET (FP) PO SCH (10:06)
[2016-10-07] MEDS: ESCITALOPRAM OXALATE 10 MG TABLET (FP) PO SCH (10:06)
[2016-10-07] MEDS: RIVASTIGMINE 9.5 MG/24 HOURS TRANSDERMAL PATCH TD SCH (10:31)
[2016-10-07] MEDS ORDERED: LIDOCAINE 5% TOPICAL PATCH TP SCH (11:44)
[2016-10-07 12:17] LABS: ERYTHROCYTE SEDIMENTATION RATE > 130 mm/hr (0-30)
[2016-10-07 14:34] LABS: ALBUMIN 2.4 g/dl (3.4-5.0); BILIRUBIN,DIRECT 0.2 mg/dL (0.0-0.2); BILIRUBIN,TOTAL 0.4 mg/dL (0.2-1.0); TOT PROT 6.3 g/dl (6.4-8.2)
--- NOTE | 2016-10-07 16:05 | HP ---
Admitting History and Physical - Primary Care Physician PCP: Diana Espino S - Admission Chief Complaint: L shoulder pain intractable and severe History of Present Illness: 86 YOF with h/o dementia and OA, DJD, developed L shoulder pain couple of months ago, I prescribed OCTx (tylenol, motrinm bengay) did not help, started on Mobic, sent to ortho, had cortison INJ felt better for a short period of time but then again severe pain, unable to sleep, went back to ortho and per ortho family did not want anymore INJ or interventions done; started on percocet 5/326 q6h prn then increased by ortho to 7.5/325 mh po q6h prn per family but still in a lot of pain; pt came in my office yesterday sleepy, not eating and not drinking water for few days, no falls; I admitted her for severe intractable pain and further mngt since admission pt had severe pain, anxiety, insomnia, agitation; did not sleep last night; nurse called me multiple times during day and night for the above; pt given toradol without relief History Source: Patient, Family Member, Medical Record Limitations to Obtaining History: No Limitations - Past Medical History LITERACY SPECIALIST: Yes: Alzheimer's Musculoskeletal: Yes: Osteoarthritis - Smoking History Smoking history: Never smoked Have you smoked in the past 12 months: No Aproximately how many cigarettes per day: 0 - Alcohol/Substance Use Hx Alcohol Use: No History of Substance Use: reports: None - Social History Usual Living Arrangement: Yes: With Child ADL: Independent History of Recent Travel: No Home Medications - Allergies Allergies/Adverse Reactions: Allergies Allergy/AdvReac Type Severity Reaction Status Date / Time No Known Allergies Allergy Verified 10/06/16 15:19 - Home Medications Home Medications: Ambulatory Orders Aspirin Chewable [May Children's Aspirin] 81 mg PO DAILY 02/04/12 Simvastatin 40 mg PO HS 02/04/12 Atenolol 50 mg PO DAILY #0 tablet 02/07/12 Cetirizine HCl [Zyrtec -] 10 mg PO DAILY 04/14/16 Escitalopram Oxalate [Lexapro -] 10 mg PO DAILY 04/14/16 Rivastigmine [Exelon Patch 9.5 mg/24 Hours] 1 each TD DAILY 04/14/16 Oxycodone HCl/Acetaminophen [Percocet 5/325 -] 1 tab PO Q6H #20 tablet MDD 4 03/10 Family Disease History - Family Disease History Family History: Unremarkable Review of Systems - Review of Systems Constitutional: denies: Chills, Fever Eyes: denies: Blind Spots, Blurred Vision HENT: denies: Difficult Swallowing, Ear Pain Cardiovascular: denies: Chest Pain, Shortness of Breath Respiratory: denies: Cough, SOB Gastrointestinal: denies: Abdominal Pain, Bloating, Constipation, Diarrhea Genitourinary: denies: Burning, Dysuria, Flank Pain Musculoskeletal: reports: Joint Pain (L shoulder). denies: Back Pain Neurological: denies: Change in LOC, Change in Speech, Confusion Hematology/Lymphatic: denies: Easily Bruised, Excessive Bleeding Psychiatric: reports: Altered Sleep Pattern, Anxiety Physical Examination Vital Signs: Vital Signs Temperature 98.6 F 10/07/16 14:46 Pulse Rate 70 10/07/16 14:46 Respiratory Rate 20 10/07/16 14:46 Blood Pressure 136/78 10/07/16 14:46 O2 Sat by Pulse Oximetry (%) 96 10/07/16 09:00 Constitutional: Yes: No Distress, Calm Eyes: Yes: Conjunctiva Clear HENT: Yes: Atraumatic Neck: Yes: Supple Cardiovascular: Yes: Regular Rate and Rhythm Respiratory: Yes: CTA Bilaterally Gastrointestinal: Yes: Soft. No: Distention, Tenderness Renal/: No: CVA Tenderness - Left, CVA Tenderness - Right Musculoskeletal: Yes: Other (unable to lift LUE more than 10-15 degrees b/o pain ). No: Back Pain Extremities: No: Calf Tenderness, Cold, Cool, Cyanosis Edema: No Peripheral Pulses WNL: Yes Integumentary: No: Rash, Venous Stasis Changes Neurological: Yes: WNL, Alert, Oriented ...Motor Strength: WNL Psychiatric: Yes: WNL, Alert, Oriented. No: Agitated, Suicidal Ideation Labs: CBC, BMP 10/07/16 06:15 Imaging - Results Chest X-ray: Report Reviewed X-ray: Report Reviewed Assessment/Plan 86 YOF OA DJD dementia admitted with severe intractable L shoulder pain ortho f/u d/w pain mngt dr Gonzalez he is NA for a consult but he advised fentanyl patch; will try ultram prn for breakthrough , milder than percocet xanax for anxiety prn, psychiatry eval d/w pt and family and staff risks of falls; rheum eval for ESR>130 labs w/u ordered d/w pt and pt's daughter phone, grandson and grand daughter T time 75 min
[2016-10-07] MEDS ORDERED: traMADol HCL 50 MG TABLET PO PRN (16:17)
[2016-10-07] MEDS ORDERED: FENTANYL PATCH WASTE MC PRN (16:17)
--- NOTE | 2016-10-07 16:21 | EKG ---
Test Reason : Blood Pressure : / mmHG Vent. Rate : 057 BPM Atrial Rate : 057 BPM P-R Int : 186 ms QRS Dur : 080 ms QT Int : 396 ms P-R-T Axes : 048 017 028 degrees QTc Int : 385 ms SINUS BRADYCARDIA OTHERWISE NORMAL ECG WHEN COMPARED WITH ECG OF 29-SEP-2016 21:29, NO SIGNIFICANT CHANGE WAS FOUND Confirmed by RANDI ESCOBAR MD ([id number]) on 10/07/2016 4:20:42 PM Referred By: Confirmed By:RANDI ESCOBAR MD
[2016-10-07] MEDS: fentaNYL 12mcg/hr PATCH.TD72 TD SCH (17:03)
[2016-10-07 19:21] LABS: THYROID STIMULATING HORMONE 1.43 uIU/ml (0.358-3.74)
[2016-10-07] MEDS ORDERED: ALPRAZolam 0.25 MG TABLET PO ONE (19:30)
[2016-10-07] MEDS: ATORVASTATIN CA 20 MG TABLET (FP) PO SCH (22:24)
[2016-10-08] MEDS: SODIUM CHLORIDE 1,000 ML IV SCH ×2 (03:27→03:31)
[2016-10-08] MEDS: methylPREDNISolone NA SUCC 40 MG/1 ML VIAL IVPB SCH ×2 (06:39→22:54)
--- NOTE | 2016-10-08 09:59 | PN ---
Progress Note (short form) - Note Progress Note: Pt seen and examined, MRI reviewed. This morning is the best I have seen this patient. She is awake, talking, smiling, and tells me in Georgian (and her daughter in Bengali) that she has NO pain in the left shoulder. The daughter states she did not require any pain medicine overnight. PE She has excellent ROM of the left shoulder with no pain. Back to her normal baseline. Her shoulder is not swollen, erythematous, ecchymotic. There is no joint effusion She is completely nontender to palpation. Imp Her left shoulder looks great. I was asked to consider aspirating the shoulder but the shoulder looks great this morning. Rec Treating the patient not the MRI, i.e. no aspiration is necessary. Can be DC'd from an orthopedic pov, f/u as an out pt.
[2016-10-08] MEDS: ASPIRIN 81 MG CHEWABLE TABLETS PO SCH (10:11)
[2016-10-08] MEDS: DOCUSATE SODIUM 100 MG CAPSULE (FP) PO SCH (10:11)
[2016-10-08] MEDS: ATENOLOL 50 MG TABLET (FP) PO SCH (10:11)
[2016-10-08] MEDS: LIDOCAINE 5% TOPICAL PATCH TP SCH (10:12)
[2016-10-08] MEDS: HEPARIN NA (PORCINE) 5,000 UNITS/ML 1ML VIAL SQ SCH ×2 (10:12→22:53)
[2016-10-08] MEDS: ESCITALOPRAM OXALATE 10 MG TABLET (FP) PO SCH (10:12)
[2016-10-08] MEDS: PANTOPRAZOLE 20 MG TABLET (FP) PO SCH (10:12)
--- NOTE | 2016-10-08 12:21 | CONSULT ---
Psychiatry Consult Chief Complaint: Patients daughter reports 5 yr history of Progressive cDementia , brought in for AMS proabably from pain meds. Symptoms: reports: Memory Impairment - Previous Psychiatric Treatment Outpatient: None Inpatient: None - Previous Substance Abuse Treatment Outpatient: None Inpatient: None - Family History Family History: Unremarkable - Current Medications Current Medications: Active Medications Acetaminophen (Tylenol -) 650 mg PO Q6H PRN PRN Reason: PAIN Alprazolam (Xanax -) 0.25 mg PO Q8H PRN Aspirin (Asa -) 81 mg PO DAILY [facility] Last Admin: 10/08/16 10:11 Dose: 81 mg Atenolol (Tenormin -) 50 mg PO DAILY [facility] Last Admin: 10/08/16 10:11 Dose: 50 mg Atorvastatin Calcium (Lipitor -) 20 mg PO HS [facility] Last Admin: 10/07/16 22:24 Dose: 20 mg Docusate Sodium (Colace -) 100 mg PO DAILY [facility] Last Admin: 10/08/16 10:11 Dose: 100 mg Escitalopram Oxalate (Lexapro -) 10 mg PO DAILY [facility] Last Admin: 10/08/16 10:12 Dose: 10 mg Fentanyl (Duragesic 12mcg Patch -) 1 patch TD Q72H [facility] Stop: 10/14/16 16:17 Last Admin: 10/07/16 17:03 Dose: 1 patch Heparin Sodium (Porcine) (Heparin -) 5,000 unit SQ BID [facility] Last Admin: 10/08/16 10:12 Dose: 5,000 unit Sodium Chloride (Normal Saline -) 1,000 mls @ 75 mls/hr IV ASDIR [facility] Last Admin: 10/08/16 03:31 Dose: 75 mls/hr Lidocaine (Lidoderm Patch -) 1 patch TP DAILY [facility] Last Admin: 10/08/16 10:12 Dose: 1 patch Methylprednisolone Sodium Succinate (Solu-Medrol -) 40 mg IVPB Q12H [facility] Last Admin: 10/08/16 06:39 Dose: 40 mg Miscellaneous (Duragesic Patch Waste) 1 each MC PRN PRN PRN Reason: PAIN Pantoprazole Sodium (Protonix -) 20 mg PO DAILY [facility] Last Admin: 10/08/16 10:12 Dose: 20 mg Rivastigmine (Exelon Patch 9.5 Mg/24 Hours -) 1 each TD Q24H [facility] Last Admin: 10/07/16 10:31 Dose: 1 each Tramadol HCl (Ultram -) 50 mg PO Q8H PRN PRN Reason: PAIN - Allergies Allergies: Allergies Allergy/AdvReac Type Severity Reaction Status Date / Time No Known Allergies Allergy Verified 10/06/16 15:19 - Current Living Status Usual Living Arrangement: With Child - Current Mental Status Evaluation Appearance: Well Groomed Attitude: Cooperative - Affect Affect: Constrictive Appropriateness: Appropriate to Content - Mood Mood: Euthymic - Speech/Language Expressive: Delayed - Psychomotor Activity Psychomotor Activity: Slowed - Thought Process Thought Process: Circumstantial - Thought Content Hallucinations: Absent Delusions: Absent - Self Perception Self Perception: Depersonalization - Cognition Attention: Alert Orientation: Time Memory, Immediate Recall: Impaired Memory, Remote: Impaired - Concentration Serial Sevens Intact: No Simple Calculations Intact: No - Abstraction Proverb Interpretation: Impaired Judgement: Moderately Impaired - Insight Insight: Impaired - Impulse Control Impulse Control: Moderately Impaired - Suicidal Ideation Suicidal Ideation: No - Homicidal Ideation Homicidal Ideation: No Assessment/Plan 1) Continue with Lexapro. 2) Confusion probably dsecondary to Pain meds.
[2016-10-08] MEDS ORDERED: IBUPROFEN 400 MG TABLET (FP) PO PRN (13:34)
--- NOTE | 2016-10-08 13:47 | PN ---
Progress Note, Physician Chief Complaint: in bed feels better started on low dose fentanyl patch yesterday which helped her a lot; MRI d/w pt's 2 daughter and bedside Roosevelt, and GD Vaishali ; large shoulder effusion OA DJD needs r/o septic joint (called by dr Ibarra yesterday); per ortho no further intervention recommended; I d/w pt and family and they would like to drain the fluid if possible and further analysis; I called rheum dr Recinos and ID dr Echeverria; reports given to family. - Current Medication List Current Medications: Active Medications Acetaminophen (Tylenol -) 650 mg PO Q6H PRN PRN Reason: PAIN Alprazolam (Xanax -) 0.25 mg PO Q8H PRN Aspirin (Asa -) 81 mg PO DAILY [facility] Last Admin: 10/08/16 10:11 Dose: 81 mg Atenolol (Tenormin -) 50 mg PO DAILY [facility] Last Admin: 10/08/16 10:11 Dose: 50 mg Atorvastatin Calcium (Lipitor -) 20 mg PO HS [facility] Last Admin: 10/07/16 22:24 Dose: 20 mg Docusate Sodium (Colace -) 100 mg PO DAILY [facility] Last Admin: 10/08/16 10:11 Dose: 100 mg Escitalopram Oxalate (Lexapro -) 10 mg PO DAILY [facility] Last Admin: 10/08/16 10:12 Dose: 10 mg Fentanyl (Duragesic 12mcg Patch -) 1 patch TD Q72H [facility] Stop: 10/14/16 16:17 Last Admin: 10/07/16 17:03 Dose: 1 patch Heparin Sodium (Porcine) (Heparin -) 5,000 unit SQ BID [facility] Last Admin: 10/08/16 10:12 Dose: 5,000 unit Ibuprofen (Motrin -) 400 mg PO Q12H PRN PRN Reason: PAIN Lidocaine (Lidoderm Patch -) 1 patch TP DAILY [facility] Last Admin: 10/08/16 10:12 Dose: 1 patch Miscellaneous (Duragesic Patch Waste) 1 each MC PRN PRN PRN Reason: PAIN Pantoprazole Sodium (Protonix -) 20 mg PO DAILY [facility] Last Admin: 10/08/16 10:12 Dose: 20 mg Rivastigmine (Exelon Patch 9.5 Mg/24 Hours -) 1 each TD Q24H [facility] Last Admin: 10/07/16 10:31 Dose: 1 each Tramadol HCl (Ultram -) 50 mg PO Q8H PRN PRN Reason: PAIN - Objective Vital Signs: Vital Signs Temperature 98 F 10/08/16 10:00 Pulse Rate 58 L 10/08/16 10:00 Respiratory Rate 18 10/08/16 10:00 Blood Pressure 126/56 10/08/16 10:00 O2 Sat by Pulse Oximetry (%) 96 10/07/16 21:00 Constitutional: Yes: No Distress, Calm Eyes: Yes: Conjunctiva Clear HENT: Yes: Atraumatic Neck: Yes: Supple Cardiovascular: Yes: Regular Rate and Rhythm Respiratory: Yes: CTA Bilaterally Gastrointestinal: Yes: Soft. No: Distention, Tenderness Musculoskeletal: Yes: Other (L shoulder pain) Extremities: No: Cold, Cool Neurological: Yes: WNL, Alert, Oriented ...Motor Strength: WNL Psychiatric: Yes: WNL, Alert, Oriented. No: Agitated Labs: CBC, BMP 10/07/16 06:15 - ....Imaging Other: Report Reviewed Assessment/Plan 86 YOF OA DJD dementia admitted with severe intractable L shoulder pain ortho f/u d/w pain mngt dr Gonzalez he is NA for a consult but he advised fentanyl patch; will try ultram prn for breakthrough , milder than percocet xanax for anxiety prn, psychiatry eval noted d/w pt and family and staff risks of falls; rheum eval for ESR>130 and possible joint aspiration r/o septic joint; ID eval labs w/u ordered PT rehab and CM ordered also d/w pt and pt's family at bedside, plan as outlined, they agreed T time 45 min
--- NOTE | 2016-10-08 15:25 | PN ---
Progress Note (short form) - Note Progress Note: ID Consult dictated L shoulder effusion on MRI, elevated ESR/CRP Possible DJD, less likely septic joint Ortho evaluation noted Would not empirically treat with antibiotics w/o synovial fluid analysis/ culture
--- NOTE | 2016-10-08 16:16 | CONS ---
DATE OF CONSULTATION: DATE OF DICTATION: 10/08/2016 An 86-year-old female evaluated for possible septic arthritis of the left shoulder. The patient has a long history of chronic left shoulder pain dating back many months. She had been seen as an outpatient by Pain Management and had received steroid injection. Over the past several days, she has had worsening left shoulder pain associated with worsening lethargy. She was admitted to the hospital, where an MRI was performed of the left shoulder, reveals a moderate sized glenohumeral joint effusion, possibly on the basis of degenerative joint disease, however, septic arthritis cannot be excluded. She was found to have an elevated sedimentation rate and C-reactive protein. No reports of fever, chills, erythema, or warmth of the left shoulder. She was seen in consultation by Orthopedics today. According to the orthopedics exam, the left shoulder has excellent range of motion and was not swollen, erythematous, or ecchymotic. No joint effusion was appreciated on clinical exam by the orthopedist. Past medical history positive for dementia, hypertension, hyperlipidemia, history of herpes zoster. No known allergies. MEDICATIONS: Aspirin, simvastatin, atenolol, Zyrtec, Lexapro, oxycodone. SOCIAL HISTORY: Resides at home with family members. Nonsmoker, nondrinker. LABORATORY DATA: White count 8.4, hematocrit 31.0, platelet count 412, sedimentation rate greater than 130, C-reactive protein 22. SYSTEMS REVIEW: Neurologic: No loss of consciousness, seizure activity, focal weakness. Cardiac: Negative chest pain or palpitations. Respiratory: Negative cough or sputum production. Gastrointestinal: Negative vomiting or diarrhea. Genitourinary: Negative for urinary tract infection. PHYSICAL EXAMINATION: General: She is awake and alert, she is not acutely toxic appearing. Vital Signs: Temperature 98. Blood pressure 126/56. Pulse 80, regular. Respiration 20 per minute. Eyes: Sclerae anicteric. Heart Sounds: S1, S2. Lungs: Clear. Abdomen: Soft. No tenderness elicited. No mass, rebound or rigidity. Extremities: Negative for pedal edema. Examination of the left shoulder, mild swelling noted; no erythema, warmth, or tenderness appreciated. IMPRESSION: Left shoulder effusion on MRI, with elevated ESR and C-reactive protein. MRI findings likely represent degenerative joint disease. No clinical evidence at this time to suggest a septic arthritis. Would not empirically treat with antibiotics for septic joint synovial fluid analysis and culture. Case discussed with Dr. Espino. Thank you for the kind referral. TEODORO RAMON M.D. [place]/[id number]
[2016-10-08] MEDS: RIVASTIGMINE 9.5 MG/24 HOURS TRANSDERMAL PATCH TD SCH (20:15)
[2016-10-08] MEDS ORDERED: LIDOCAINE HCL 1%, 10 MG/ML (50 mL VIAL) SQ ONE (21:09)
--- NOTE | 2016-10-08 21:48 | CONSULT ---
Consult Consult Specialty:: Rheumatology - History of Present Illness History of Present Illness: 86 year old female with h/o dementia and OA, DJD and hypertension, admitted with severe pain in the left shoulder. HPI. The patient has a 2 month history of pain in the left shoulder and apparentl;y she also had neck pain and tenderness in the left retroauricular region radiated to left supraclavicular region. The patient's daughter denied that she had jaw pain, jaw claudication or changes in her vision. The pain was severe, interfering with her sleep and it was worse with movements of the joint. She did not respond to NSAIDs and 2 weeks ago she was seen by Orthopedics who gave her a steroid injection to the left shoulder. The patient did not respond and as the pain was severe she was started on Percocet 5/325 that later was increased to 7.5/325 with poor response and intolerance related to excessive somnolence. She was admitted to the hospital 2 days ago, she was started on Fentanyl patch 12 mcg/hr and Methylprednisolone 40 mg IV (she received only one dose). In the hospital the patient improved significantly, however she still has significant pain and avoids moving the left shoulder. On admission laboratory work-up revealed ESR 123 and CRP 22. CBC with a WBC of 8.7, Hgb 11.5 and platelets 421. Creatinine 1.0 and CK 101. UA with LE 2+ and no blood and no protein. An X ray of the left shoulder was normal and MRI of the left shoulder was reported with significant degenerative changes, moderate glenohumeral effusion with punctate debris, tendinosis of the rotator cuff and tear of the bicipital tendon. This changes are indicative of osteoarthritis and rule out septic arthritis. During the admission the patient has not have fever. Dr. Zapien reported that recent laboratory work-up revealed a normal ESR. - History Source History Provided By: Family Member, Medical Record Limitations to Obtaining History: Dementia - Past Medical History GENETIC COUNSELOR: Yes: Alzheimer's Cardio/Vascular: Yes: HTN Musculoskeletal: Yes: Osteoarthritis - Alcohol/Substance Use Hx Alcohol Use: No History of Substance Use: reports: None - Smoking History Smoking history: Never smoked Have you smoked in the past 12 months: No Aproximately how many cigarettes per day: 0 - Social History Usual Living Arrangement: With Child ADL: Independent History of Recent Travel: No Home Medications - Allergies Allergies/Adverse Reactions: Allergies Allergy/AdvReac Type Severity Reaction Status Date / Time No Known Allergies Allergy Verified 10/06/16 15:19 - Home Medications Home Medications: Ambulatory Orders Aspirin Chewable [May Children's Aspirin] 81 mg PO DAILY 02/04/12 Simvastatin 40 mg PO HS 02/04/12 Atenolol 50 mg PO DAILY #0 tablet 02/07/12 Cetirizine HCl [Zyrtec -] 10 mg PO DAILY 04/14/16 Escitalopram Oxalate [Lexapro -] 10 mg PO DAILY 04/14/16 Rivastigmine [Exelon Patch 9.5 mg/24 Hours] 1 each TD DAILY 04/14/16 Oxycodone HCl/Acetaminophen [Percocet 5/325 -] 1 tab PO Q6H #20 tablet MDD 4 03/10 Review of Systems - Review of Systems Constitutional: reports: Malaise Eyes: reports: No Symptoms HENT: reports: No Symptoms Neck: reports: Other (Chronic neck pain.) Cardiovascular: reports: No Symptoms Respiratory: reports: No Symptoms Genitourinary: reports: No Symptoms Musculoskeletal: reports: Other (See HPI) Physical Exam Vital Signs: Vital Signs Temperature 98.7 F 10/08/16 17:39 Pulse Rate 63 10/08/16 17:39 Respiratory Rate 16 10/08/16 17:39 Blood Pressure 114/62 10/08/16 17:39 O2 Sat by Pulse Oximetry (%) 98 10/08/16 09:00 Constitutional: Yes: Mild Distress Eyes: Yes: WNL HENT: Yes: WNL Neck: Yes: WNL, Other (There was no tenderness in neck or supraclavicular region. Questionable tenderness in temporal regions.) Cardiovascular: Yes: WNL Respiratory: Yes: WNL Musculoskeletal: Yes: Other (Tenderness in the left shoulder, both over the glenohumeral joint and over the garter tuberosity on extension of the joint, suggestive of pain in the shoulder joint and rotator cuff tendon. Passive range of movement was not limited howver she had significant tender wioth abduction above 90o and external and internal rotation.) Labs: CBC, BMP 10/07/16 06:15 Laboratory Tests 10/06/16 10/06/16 10/07/16 16:54 16:54 02:30 ESR 123 H Sodium 134 L Potassium 5.2 H D Chloride 96 L Carbon Dioxide 28 Anion Gap 10 BUN 16 D Creatinine 1.0 Creat Clearance w eGFR 52.82 Random Glucose 101 D Calcium 9.4 Total Bilirubin Direct Bilirubin AST ALT Alkaline Phosphatase C-Reactive Protein Total Protein Albumin Rheumatoid Factor < 10.0 10/07/16 10/07/16 06:15 06:15 ESR > 130 H Sodium Potassium Chloride Carbon Dioxide Anion Gap BUN Creatinine Creat Clearance w eGFR Random Glucose Calcium Total Bilirubin 0.4 Direct Bilirubin 0.2 AST 25 D ALT 32 Alkaline Phosphatase 67 C-Reactive Protein 22.0 H Total Protein 6.3 L Albumin 2.4 L Rheumatoid Factor Problem List - Problems (1) Shoulder pain, left Assessment/Plan: PROCEDURE: Under aseptic conditions, I gave 1 ml Lidocaine 1% and aspirated the left shoulder. I obtained only 0.3 ml of viscous, slightly bloody fluid. The fluid was sent for gram stain and culture. Impression: Severe left shoulder pain associated with very high ESR and CRP. It is unlikely that she has septic arthritis. MRI of the shoulder revealed degenerative changes and rotator cuff tendinosis, that would not explain the severity of the pain. The patient has had neck pain, tenderness in retroauricular region and questionable tenderness in temporal region. She improved with one dose of Solumedrol 40 mg, in addition to Fentanyl patch. Rule out temporal arteritis. Code(s): M25.512 - PAIN IN LEFT SHOULDER (2) Temporal arteritis Assessment/Plan: Rule out temporal arteritis. Plan: Decrease Methylprednisolone to 60 mg daily and I will discuss with Dr. Zapien obtaining a temporal artery biopsy. Consider discontinuation of Fentanyl patch. Code(s): M31.6 - OTHER GIANT CELL ARTERITIS
[2016-10-08] MEDS: ATORVASTATIN CA 20 MG TABLET (FP) PO SCH (22:54)
[2016-10-08] MEDS: ACETAMINOPHEN 325 MG TABLET (FP) PO PRN (22:54)
[2016-10-08] MEDS: ALPRAZolam 0.25 MG TABLET PO PRN (22:56)
--- NOTE | 2016-10-09 09:41 | PN ---
Progress Note (short form) - Note Progress Note: Ortho Pt seen and examined- left shoulder feeling better Microbiology Selected Entries 10/09/16 06:05 Temperature 98.9 F Pulse Rate 55 L Respiratory 16 Rate Blood Pressure 127/59 Laboratory Tests 10/07/16 06:15 WBC 8.4 Hgb 10.5 L Hct 31.0 L Plt Count 412 decr pain, incr rom nvi a/p PT pain control orthopedically stable d/c planning d/w Dr. julio
[2016-10-09] MEDS ORDERED: PT OWN MED DRAWER 7, Y5N ONE (10:10)
[2016-10-09] MEDS: ESCITALOPRAM OXALATE 10 MG TABLET (FP) PO SCH (10:39)
[2016-10-09] MEDS: DOCUSATE SODIUM 100 MG CAPSULE (FP) PO SCH (10:39)
[2016-10-09] MEDS: PANTOPRAZOLE 20 MG TABLET (FP) PO SCH (10:39)
[2016-10-09] MEDS: ASPIRIN 81 MG CHEWABLE TABLETS PO SCH (10:39)
[2016-10-09] MEDS: LIDOCAINE 5% TOPICAL PATCH TP SCH (10:39)
[2016-10-09] MEDS: HEPARIN NA (PORCINE) 5,000 UNITS/ML 1ML VIAL SQ SCH ×2 (10:39→23:29)
[2016-10-09] MEDS: ATENOLOL 50 MG TABLET (FP) PO SCH (10:40)
[2016-10-09] MEDS: RIVASTIGMINE 9.5 MG/24 HOURS TRANSDERMAL PATCH TD SCH (10:41)
[2016-10-09] MEDS: methylPREDNISolone NA SUCC 40 MG/1 ML VIAL IVPB SCH (10:42)
--- NOTE | 2016-10-09 12:57 | PN ---
Progress Note, Physician Chief Complaint: no shoulder pain; on IV steroids and fentanyl patch; daughter Meghana at bedside; I d/w dr Recinos rheum and he advised temporal artery biopsy r/o Zeina, d/w pt and daughter indications, risks and alternatives and they agreed with the procedure; d/w vasc sx dr Hernandez also - Current Medication List Current Medications: Active Medications Acetaminophen (Tylenol -) 650 mg PO Q6H PRN PRN Reason: PAIN Last Admin: 10/08/16 22:54 Dose: 650 mg Alprazolam (Xanax -) 0.25 mg PO Q8H PRN Last Admin: 10/08/16 22:56 Dose: 0.25 mg Aspirin (Asa -) 81 mg PO DAILY [facility] Last Admin: 10/09/16 10:39 Dose: 81 mg Atenolol (Tenormin -) 50 mg PO DAILY [facility] Last Admin: 10/09/16 10:40 Dose: 50 mg Atorvastatin Calcium (Lipitor -) 20 mg PO HS [facility] Last Admin: 10/08/16 22:54 Dose: 20 mg Docusate Sodium (Colace -) 100 mg PO DAILY [facility] Last Admin: 10/09/16 10:39 Dose: 100 mg Escitalopram Oxalate (Lexapro -) 10 mg PO DAILY [facility] Last Admin: 10/09/16 10:39 Dose: 10 mg Fentanyl (Duragesic 12mcg Patch -) 1 patch TD Q72H [facility] Stop: 10/14/16 16:17 Last Admin: 10/07/16 17:03 Dose: 1 patch Heparin Sodium (Porcine) (Heparin -) 5,000 unit SQ BID [facility] Last Admin: 10/09/16 10:39 Dose: 5,000 unit Ibuprofen (Motrin -) 400 mg PO Q12H PRN PRN Reason: PAIN Lidocaine (Lidoderm Patch -) 1 patch TP DAILY [facility] Last Admin: 10/09/16 10:39 Dose: 1 patch Methylprednisolone Sodium Succinate (Solu-Medrol -) 60 mg IVPB DAILY@0800 [facility] Last Admin: 10/09/16 10:42 Dose: 60 mg Miscellaneous (Duragesic Patch Waste) 1 each MC PRN PRN PRN Reason: PAIN Pantoprazole Sodium (Protonix -) 20 mg PO DAILY [facility] Last Admin: 10/09/16 10:39 Dose: 20 mg Rivastigmine (Exelon Patch 9.5 Mg/24 Hours -) 1 each TD Q24H [facility] Last Admin: 10/09/16 10:41 Dose: 1 each Tramadol HCl (Ultram -) 50 mg PO Q8H PRN PRN Reason: PAIN - Objective Vital Signs: Vital Signs Temperature 98.9 F 10/09/16 06:05 Pulse Rate 55 L 10/09/16 06:05 Respiratory Rate 16 10/09/16 06:05 Blood Pressure 127/59 10/09/16 06:05 O2 Sat by Pulse Oximetry (%) 97 10/08/16 21:00 Constitutional: Yes: No Distress, Calm Eyes: Yes: Conjunctiva Clear HENT: Yes: Atraumatic Neck: Yes: Supple Cardiovascular: Yes: Regular Rate and Rhythm Respiratory: Yes: CTA Bilaterally Gastrointestinal: Yes: Soft. No: Distention, Tenderness Genitourinary: No: CVA Tenderness - Left, CVA Tenderness - Right Musculoskeletal: No: Joint Stiffness, Joint Swelling Extremities: No: Cold, Cool Edema: No Peripheral Pulses WNL: Yes Integumentary: No: Rash, Venous Stasis Changes Neurological: Yes: WNL, Alert, Oriented ...Motor Strength: WNL Psychiatric: Yes: WNL, Alert, Oriented. No: Agitated Labs: CBC, BMP 10/07/16 06:15 - ....Imaging Other: Report Reviewed Assessment/Plan 86 YOF OA DJD dementia admitted with severe intractable L shoulder pain d/w pt and family and staff risks of falls; rheum eval for ESR>130 and s/p joint aspiration r/o septic joint; vasc sx eval for TA biopsy labs w/u ordered PT rehab and CM ordered also d/w pt and daughter at bedside, plan as outlined, they agreed with plan T time 35
--- NOTE | 2016-10-09 13:11 | PN ---
Progress Note (short form) - Note Progress Note: PRE-OP NOTE Dx: r/o Temporal arteritis Planned procedure: Temporal artery biopsy Surgeon: Johnson Hernandez Last Vital Signs Temp Pulse Resp BP Pulse Ox 98.9 F 55 L 16 127/59 97 10/09/16 06:05 10/09/16 06:05 10/09/16 06:05 10/09/16 06:05 10/08/16 21:00 CBC, BMP 10/07/16 06:15 10/06/16 16:54 Problem List - Problems (1) Shoulder pain, left Assessment/Plan: npo/ivf except po meds after midnight gi/dvt ppx type and screen coag consent medical optimization/clearance Code(s): M25.512 - PAIN IN LEFT SHOULDER
[2016-10-09] MEDS: ATORVASTATIN CA 20 MG TABLET (FP) PO SCH (23:29)
[2016-10-09] MEDS: ALPRAZolam 0.25 MG TABLET PO PRN (23:29)
[2016-10-10] MEDS ORDERED: LIDOCAINE HCL 1%, 10 MG/ML (20ML VIAL) ONE (07:09)
[2016-10-10 08:45] LABS: INR 1.23 (0.82-1.09); PROTHROMBIN TIME (PATIENT) 13.6 SEC (9.98-11.88)
[2016-10-10 08:46] LABS: ALBUMIN 2.3 g/dl (3.4-5.0); ANION GAP -1 (8-16); CALCIUM 9.2 mg/dL (8.5-10.1); CO2 30 mmol/L (21-32); GLUCOSE,RANDOM 88 mg/dL (74-106)
[2016-10-10 08:48] LABS: ACTIVATED PTT 27.9 SECONDS (26.9-34.4)
[2016-10-10 08:50] LABS: ALK PHOS 59 U/L (45-117); BILIRUBIN,TOTAL 0.2 mg/dL (0.2-1.0); CREATININE 0.8 mg/dL (0.55-1.02); SGOT/AST 29 U/L (15-37); SGPT/ALT 58 U/L (12-78); TOT PROT 5.9 g/dl (6.4-8.2)
[2016-10-10] MEDS: methylPREDNISolone NA SUCC 40 MG/1 ML VIAL IVPB SCH (08:59)
[2016-10-10 09:07] LABS: BASOPHIL 0.2 % (0-2.0); EOSINOPHIL 0.3 % (0-4.5); MCH 30.6 pg (25.7-33.7); MCHC 33.1 g/dl (32.0-36.0); MEAN CELL VOLUME 92.5 fl (80-96); MEAN PLT VOLUME 10.1 fl (7.5-11.1); NEUTROPHILS 64.9 % (42.8-82.8); PLATELET COUNT 394 K/MM3 (134-434); RDW 12.7 % (11.6-15.6); WHITE BLOOD COUNT 11.2 K/mm3 (4.0-10.0)
[2016-10-10 09:29] LABS: ALBUMIN 2.5 gm/dl (3.5-4.7); TOTAL PROTEIN 6.7
[2016-10-10 09:30] LABS: A/G RATIO 0.6; GLOBULIN, TOTAL 4.2; M-SPIKE NOT OBSERVED
[2016-10-10] MEDS ORDERED: SODIUM CHLORIDE 1,000 ML IV SCH (09:45)
[2016-10-10] MEDS: RIVASTIGMINE 9.5 MG/24 HOURS TRANSDERMAL PATCH TD SCH ×2 (10:00→16:44)
[2016-10-10] MEDS ORDERED: PT OWN MED DRAWER 7, Y5N ONE (10:27)
[2016-10-10] MEDS: ASPIRIN 81 MG CHEWABLE TABLETS PO SCH (10:33)
[2016-10-10] MEDS: HEPARIN NA (PORCINE) 5,000 UNITS/ML 1ML VIAL SQ SCH ×2 (10:33→21:35)
[2016-10-10] MEDS: DOCUSATE SODIUM 100 MG CAPSULE (FP) PO SCH ×2 (10:33→16:47)
[2016-10-10] MEDS: ESCITALOPRAM OXALATE 10 MG TABLET (FP) PO SCH ×2 (10:34→16:45)
[2016-10-10] MEDS: LIDOCAINE 5% TOPICAL PATCH TP SCH (10:34)
[2016-10-10] MEDS: PANTOPRAZOLE 20 MG TABLET (FP) PO SCH ×2 (10:35→16:45)
[2016-10-10] MEDS: ACETAMINOPHEN 325 MG TABLET (FP) PO PRN (10:35)
[2016-10-10] MEDS: ATENOLOL 50 MG TABLET (FP) PO SCH (10:35)
[2016-10-10 11:28] LABS: FERRITIN 140.721 ng/ml (6.9-282.5)
[2016-10-10] MEDS ORDERED: traMADol HCL 50 MG TABLET PO PRN (11:48)
--- NOTE | 2016-10-10 11:50 | PN ---
Progress Note, Physician Chief Complaint: less shoulder pain, for temporal artery biopsy r/o TA - Current Medication List Current Medications: Active Medications Acetaminophen (Tylenol -) 650 mg PO Q6H PRN PRN Reason: PAIN Last Admin: 10/10/16 10:35 Dose: 650 mg Aspirin (Asa -) 81 mg PO DAILY [facility] Last Admin: 10/10/16 10:33 Dose: Not Given Atenolol (Tenormin -) 50 mg PO DAILY [facility] Last Admin: 10/10/16 10:35 Dose: 50 mg Atorvastatin Calcium (Lipitor -) 20 mg PO HS [facility] Last Admin: 10/09/16 23:29 Dose: 20 mg Docusate Sodium (Colace -) 100 mg PO DAILY [facility] Last Admin: 10/10/16 10:33 Dose: Not Given Escitalopram Oxalate (Lexapro -) 10 mg PO DAILY [facility] Last Admin: 10/10/16 10:34 Dose: Not Given Fentanyl (Duragesic 12mcg Patch -) 1 patch TD Q72H [facility] Stop: 10/14/16 16:17 Last Admin: 10/07/16 17:03 Dose: 1 patch Heparin Sodium (Porcine) (Heparin -) 5,000 unit SQ BID [facility] Last Admin: 10/10/16 10:33 Dose: Not Given Sodium Chloride (Normal Saline -) 1,000 mls @ 50 mls/hr IV ASDIR [facility] Stop: 10/11/16 09:40 Last Admin: 10/10/16 11:29 Dose: 50 mls/hr Ibuprofen (Motrin -) 400 mg PO Q12H PRN PRN Reason: PAIN Lidocaine (Lidoderm Patch -) 1 patch TP DAILY [facility] Last Admin: 10/10/16 10:34 Dose: 1 patch Methylprednisolone Sodium Succinate (Solu-Medrol -) 60 mg IVPB DAILY@0800 [facility] Last Admin: 10/10/16 08:59 Dose: 60 mg Miscellaneous (Duragesic Patch Waste) 1 each MC PRN PRN PRN Reason: PAIN Pantoprazole Sodium (Protonix -) 20 mg PO DAILY [facility] Last Admin: 10/10/16 10:35 Dose: Not Given Rivastigmine (Exelon Patch 9.5 Mg/24 Hours -) 1 each TD Q24H [facility] Last Admin: 10/09/16 10:41 Dose: 1 each Tramadol HCl (Ultram -) 50 mg PO Q6H PRN - Objective Vital Signs: Vital Signs Temperature 98.3 F 10/10/16 10:09 Pulse Rate 68 10/10/16 10:09 Respiratory Rate 20 10/10/16 10:09 Blood Pressure 132/71 10/10/16 10:09 O2 Sat by Pulse Oximetry (%) 96 10/09/16 21:00 Constitutional: Yes: No Distress Eyes: Yes: Conjunctiva Clear HENT: Yes: Atraumatic Neck: Yes: Supple Cardiovascular: Yes: Regular Rate and Rhythm Respiratory: Yes: CTA Bilaterally Gastrointestinal: Yes: Soft. No: Distention, Tenderness Musculoskeletal: Yes: Joint Stiffness (L shoulder). No: Joint Swelling Extremities: No: Cold, Cool Edema: No Peripheral Pulses WNL: Yes Integumentary: No: Rash, Venous Stasis Changes Neurological: Yes: WNL, Alert, Oriented ...Motor Strength: WNL Psychiatric: Yes: WNL, Alert, Oriented. No: Agitated Labs: CBC, BMP 10/10/16 07:48 10/10/16 07:48 INR, PTT INR 1.23 (0.82-1.09) H 10/10/16 07:48 - ....Imaging Other: Report Reviewed Assessment/Plan 86 YOF OA DJD dementia admitted with severe intractable L shoulder pain d/w pt and family and staff risks of falls; rheum eval for ESR>130 and s/p joint aspiration no septic joint; vasc sx TA biopsy; IV steroids per rheum labs w/u ordered PT rehab and CM ordered also d/w pt and daughter at bedside, plan as outlined, they agreed with plan
[2016-10-10] MEDS ORDERED: ceFAZolin SODIUM 1 GM VIAL ONE (13:11)
[2016-10-10] MEDS ORDERED: ceFAZolin SODIUM 1 GM VIAL IVPB ONE (13:15)
[2016-10-10] MEDS ORDERED: MIDAZOLAM HCL 2 MG/2 ML SINGLE DOSE VIAL ONE (13:15)
[2016-10-10] MEDS ORDERED: LIDOCAINE HCL 1%, 10 MG/ML (20ML VIAL) IJ ONE (13:20)
[2016-10-10] MEDS ORDERED: ONDANSETRON 4 MG/2 ML VIAL IVPUSH PRN (13:53)
--- NOTE | 2016-10-10 13:54 | OP ---
Operative Note - Note: Operative Date: 10/10/16 Pre-Operative Diagnosis: rule out temporal arteritis Operation: left temporal artery biopsy Post-Operative Diagnosis: Same as Pre-op Surgeon: Johnson Hernandez Anesthesia: Fractional Estimated Blood Loss (mls): 5 Operative Report Dictated: Yes
[2016-10-10] MEDS: fentaNYL 12mcg/hr PATCH.TD72 TD SCH (16:42)
[2016-10-10] MEDS: ATORVASTATIN CA 20 MG TABLET (FP) PO SCH (21:35)
--- NOTE | 2016-10-11 08:58 | PN ---
Progress Note (short form) - Note Progress Note: POD#1 s/p left temporal artery biopsy with Dr. Hernandez Patient is resting comfortably, small amount of pain. Last Vital Signs Temp Pulse Resp BP Pulse Ox 98.3 F 63 18 136/69 98 10/11/16 06:00 10/11/16 06:00 10/11/16 06:00 10/11/16 06:00 10/10/16 22:00 PE: Gen: NAD Head: Left uatsdin with steri-strips in place, clean, dry, intact Problem List - Problems (1) Shoulder pain, left Assessment/Plan: POD#1 s/p left temporal artery biopsy Leave steri-strips in place Continue care per primary team Code(s): M25.512 - PAIN IN LEFT SHOULDER
[2016-10-11] MEDS ORDERED: methylPREDNISolone NA SUCC 40 MG/1 ML VIAL IVPB SCH (10:33)
[2016-10-11] MEDS: ASPIRIN 81 MG CHEWABLE TABLETS PO SCH (11:15)
[2016-10-11] MEDS: DOCUSATE SODIUM 100 MG CAPSULE (FP) PO SCH (11:15)
[2016-10-11] MEDS: PANTOPRAZOLE 20 MG TABLET (FP) PO SCH (11:16)
[2016-10-11] MEDS: ATENOLOL 50 MG TABLET (FP) PO SCH (11:17)
[2016-10-11] MEDS: LIDOCAINE 5% TOPICAL PATCH TP SCH (11:18)
[2016-10-11] MEDS: ESCITALOPRAM OXALATE 10 MG TABLET (FP) PO SCH (11:20)
[2016-10-11] MEDS: HEPARIN NA (PORCINE) 5,000 UNITS/ML 1ML VIAL SQ SCH ×2 (11:20→22:02)
[2016-10-11] MEDS: methylPREDNISolone NA SUCC 40 MG/1 ML VIAL IVPB SCH (11:21)
[2016-10-11] MEDS ORDERED: PT OWN MED DRAWER 7, Y5N ONE (13:09)
--- NOTE | 2016-10-11 13:48 | PN ---
Progress Note (short form) - Note Progress Note: Anesthesia postop note 86 y/o F s/p MAC anesthesia for temporal artery biopsy POD#1, aaox3, vss, c/o left shoulder pain, not new, sitting in chair, no acute distress. No anesthesia complications.
[2016-10-11 14:16] LABS: ALBUMIN FOR UPE 20.4 % (.); GAMMA GLOBULIN % 22.9 % (.); M-SPIKE, % Not Observed % (Not Observed)
[2016-10-11] MEDS: RIVASTIGMINE 9.5 MG/24 HOURS TRANSDERMAL PATCH TD SCH (14:34)
--- NOTE | 2016-10-11 21:08 | PN ---
Progress Note, Physician Chief Complaint: s/p L TA biopsy; has some local pain, no rash or bleed; also more L shoulder pain today; daughter Meghana at bedside - Current Medication List Current Medications: Active Medications Acetaminophen (Tylenol -) 650 mg PO Q6H PRN PRN Reason: PAIN Last Admin: 10/10/16 10:35 Dose: 650 mg Aspirin (Asa -) 81 mg PO DAILY [facility] Last Admin: 10/11/16 11:15 Dose: 81 mg Atenolol (Tenormin -) 50 mg PO DAILY [facility] Last Admin: 10/11/16 11:17 Dose: 50 mg Atorvastatin Calcium (Lipitor -) 20 mg PO HS [facility] Last Admin: 10/10/16 21:35 Dose: 20 mg Docusate Sodium (Colace -) 100 mg PO DAILY [facility] Last Admin: 10/11/16 11:15 Dose: 100 mg Escitalopram Oxalate (Lexapro -) 10 mg PO DAILY [facility] Last Admin: 10/11/16 11:20 Dose: 10 mg Fentanyl (Duragesic 12mcg Patch -) 1 patch TD Q72H [facility] Stop: 10/14/16 16:17 Last Admin: 10/10/16 16:42 Dose: 1 patch Heparin Sodium (Porcine) (Heparin -) 5,000 unit SQ BID [facility] Last Admin: 10/11/16 11:20 Dose: Not Given Ibuprofen (Motrin -) 400 mg PO Q12H PRN PRN Reason: PAIN Last Admin: 10/11/16 14:39 Dose: 400 mg Lidocaine (Lidoderm Patch -) 1 patch TP DAILY [facility] Last Admin: 10/11/16 11:18 Dose: 1 patch Methylprednisolone Sodium Succinate (Solu-Medrol -) 40 mg IVPB DAILY@0800 [facility] Miscellaneous (Duragesic Patch Waste) 1 each MC PRN PRN PRN Reason: PAIN Pantoprazole Sodium (Protonix -) 20 mg PO DAILY [facility] Last Admin: 10/11/16 11:16 Dose: 20 mg Rivastigmine (Exelon Patch 9.5 Mg/24 Hours -) 1 each TD Q24H [facility] Last Admin: 10/11/16 14:34 Dose: 1 each Tramadol HCl (Ultram -) 50 mg PO Q6H PRN - Objective Vital Signs: Vital Signs Temperature 99.1 F 10/11/16 19:00 Pulse Rate 63 10/11/16 19:00 Respiratory Rate 20 10/11/16 19:00 Blood Pressure 118/68 10/11/16 19:00 O2 Sat by Pulse Oximetry (%) 98 10/11/16 09:00 Constitutional: Yes: No Distress Eyes: Yes: Conjunctiva Clear HENT: Yes: Atraumatic Neck: Yes: Supple Cardiovascular: Yes: Regular Rate and Rhythm Respiratory: Yes: CTA Bilaterally Gastrointestinal: Yes: Soft. No: Distention, Tenderness Musculoskeletal: No: Joint Stiffness, Joint Swelling Extremities: No: Cold, Cool Edema: No Peripheral Pulses WNL: Yes Integumentary: No: Pressure Ulcer, Venous Stasis Changes Neurological: Yes: WNL, Alert, Oriented ...Motor Strength: WNL Psychiatric: Yes: WNL, Alert, Oriented. No: Agitated Labs: CBC, BMP 10/10/16 07:48 10/10/16 07:48 INR, PTT INR 1.23 (0.82-1.09) H 10/10/16 07:48 - ....Imaging Other: Report Reviewed Assessment/Plan 86 YOF OA DJD dementia admitted with severe intractable L shoulder pain d/w pt and family and staff risks of falls; rheum eval for ESR>130 and s/p joint aspiration no septic joint; vasc sx TA biopsy; IV steroids per rheum labs w/u ordered PT rehab and CM ordered also d/w pt and daughter at bedside, plan as outlined, they agreed with plan
[2016-10-11] MEDS: ATORVASTATIN CA 20 MG TABLET (FP) PO SCH (21:57)
[2016-10-12] MEDS ORDERED: FENTANYL PATCH WASTE TD PRN (07:10)
[2016-10-12] MEDS ORDERED: morphine CARPU-JECT 2 MG/1 ML DISP.SYRIN IM ONE (07:10)
[2016-10-12] MEDS ORDERED: ACETAMINOPHEN 325 MG TABLET (FP) PO PRN (07:10)
[2016-10-12] MEDS ORDERED: IBUPROFEN 400 MG TABLET (FP) PO PRN (07:10)
[2016-10-12] MEDS ORDERED: FENTANYL PATCH WASTE MC PRN (07:10)
[2016-10-12] MEDS ORDERED: traMADol HCL 50 MG TABLET PO PRN (07:10)
[2016-10-12 07:36] LABS: BASOPHIL 0.1 % (0-2.0); EOSINOPHIL 0.4 % (0-4.5); MCH 31.2 pg (25.7-33.7); MEAN CELL VOLUME 91.9 fl (80-96); MEAN PLT VOLUME 10.1 fl (7.5-11.1); NEUTROPHILS 58.4 % (42.8-82.8); PLATELET COUNT 398 K/MM3 (134-434); RDW 12.9 % (11.6-15.6); WHITE BLOOD COUNT 9.1 K/mm3 (4.0-10.0)
[2016-10-12 08:03] LABS: ALBUMIN 2.3 g/dl (3.4-5.0); ANION GAP 3 (8-16); CALCIUM 8.9 mg/dL (8.5-10.1); CO2 33 mmol/L (21-32); GLUCOSE,RANDOM 93 mg/dL (74-106)
[2016-10-12 08:07] LABS: ALK PHOS 55 U/L (45-117); BILIRUBIN,TOTAL 0.2 mg/dL (0.2-1.0); CREATININE 0.8 mg/dL (0.55-1.02); SGOT/AST 14 U/L (15-37); SGPT/ALT 38 U/L (12-78); TOT PROT 5.9 g/dl (6.4-8.2)
[2016-10-12] MEDS ORDERED: HEPARIN NA (PORCINE) 5,000 UNITS/ML 1ML VIAL SQ SCH (10:00)
[2016-10-12] MEDS ORDERED: ATENOLOL 50 MG TABLET (FP) PO SCH (10:00)
[2016-10-12] MEDS ORDERED: LIDOCAINE 5% TOPICAL PATCH TP SCH (10:00)
[2016-10-12] MEDS ORDERED: DOCUSATE SODIUM 100 MG CAPSULE (FP) PO SCH (10:00)
[2016-10-12] MEDS ORDERED: ASPIRIN 81 MG CHEWABLE TABLETS PO SCH (10:00)
[2016-10-12] MEDS ORDERED: PANTOPRAZOLE 20 MG TABLET (FP) PO SCH (10:00)
[2016-10-12] MEDS ORDERED: RIVASTIGMINE 9.5 MG/24 HOURS TRANSDERMAL PATCH TD SCH (10:00)
[2016-10-12] MEDS ORDERED: ESCITALOPRAM OXALATE 10 MG TABLET (FP) PO SCH (10:00)
--- NOTE | 2016-10-12 11:43 | PATH ---
Surgical Pathology Report Patient Name: RIVER DUNCAN Med. Rec. #: [id number] /Age/Gender: 1930 (Age: 86) / F Account: [id number] Location: [address] [place] [address]/[facility] Taken: 10/10/2016 Received: 10/11/2016 Reported: 10/12/2016 Physicians: Johnson Espino M.D. Specimen(s) Received TEMPORAL ARTERY BIOPSY Clinical History Rule out temporal arteritis Final Diagnosis TEMPORAL ARTERY, BIOPSY: MUSCULAR ARTERY WITH FOCAL MEDIAL CALCIFICATIONS; NO EVIDENCE OF ARTERITIS. MULTIPLE LEVELS EXAMINED. Electronically Signed Alexandru Snow M.D. Gross Description Received in formalin, labeled "temporal artery" is a 1.2 cm in length x 0.1 cm in diameter portion of blood vessel, consistent with a temporal artery. The specimen is serially sectioned and entirely submitted in one cassette. /10/11/201610/11/2016
[2016-10-12] MEDS ORDERED: predniSONE 20 MG TABLET (UD) PO ONE (11:45)
[2016-10-12 13:26] VITALS: BP 122/62; PULSE 70; TEMP 98.9
--- NOTE | 2016-10-12 13:59 | DS ---
Physical Examination Vital Signs: Vital Signs Temperature 98.9 F 10/12/16 10:00 Pulse Rate 70 10/12/16 10:00 Respiratory Rate 18 10/12/16 10:00 Blood Pressure 122/62 10/12/16 10:00 O2 Sat by Pulse Oximetry (%) 97 10/11/16 22:00 Findings/Remarks: Doing well, no more L shoulder pain, can lift it up passively above her head; daughter Meghana and GD at bedside; pt and family want to go home now. Temp recorded this am at 6 was 99.9 I d/w [facility] nurse she said in the report it was 98.9 not 99.9 from 6 am, and repeated by her was also 98.9. Pt has no fever/ chills and feels much better. All CX negative. TA biopsy begative for arteritis. d/w rheum dr Recinos quick taper steroids and f/u with him in the office also needs f/u PCP, cardiology and pain dr outpt; scripts done. d/w pt and family; falls PFX; T time 40 min Constitutional: Yes: No Distress, Calm Eyes: Yes: Conjunctiva Clear HENT: Yes: Atraumatic Neck: Yes: Supple Cardiovascular: Yes: Regular Rate and Rhythm Respiratory: Yes: CTA Bilaterally Gastrointestinal: Yes: Soft. No: Distention, Tenderness Renal/: No: CVA Tenderness - Left, CVA Tenderness - Right Musculoskeletal: No: Joint Stiffness, Joint Swelling Extremities: No: Cold, Cool Edema: No Peripheral Pulses WNL: Yes Integumentary: No: Rash, Venous Stasis Changes Neurological: Yes: WNL, Alert, Oriented ...Motor Strength: WNL Psychiatric: Yes: WNL, Alert, Oriented. No: Agitated Labs: CBC, BMP 10/12/16 06:30 10/12/16 06:30 Discharge Summary Reason For Visit: SHOULDER JOINT PAIN UPON MOVEMENT/DEHYDRAT Current Active Problems Dehydration (Acute) Shoulder joint painful on movement (Acute) Shoulder pain, left (Acute) Temporal arteritis (Acute) Procedures: Principal: severe intractable L shoulder pain; ESR >130; MRI noted. Other Procedures: L shoulder tap; L TA biopsy;. ortho, rheum and pain dr chávez; Hospital Course: pain meds per pain dr; w/u and tx per above specialists; DC home with VNS and PT; f/u as advised Condition: Stable - Instructions Diet, Activity, Other Instructions: f/u PCP and rheumatology in 1-2 weeks of DC home PT and VNS rter if worse or recurrent c/o Referrals: Seth Espino MD [Primary Care Provider] - Kadeem Recinos MD [Staff Physician] - Disposition: VNS/HOME HEALTH CARE - Home Medications Comprehensive Discharge Medication List: Ambulatory Orders Aspirin Chewable [May Children's Aspirin] 81 mg PO DAILY 02/04/12 Simvastatin 40 mg PO HS 02/04/12 Atenolol 50 mg PO DAILY #0 tablet 02/07/12 Escitalopram Oxalate [Lexapro -] 10 mg PO DAILY 04/14/16 Rivastigmine [Exelon Patch 9.5 mg/24 Hours -] 1 each TD DAILY 04/14/16 Acetaminophen [Tylenol .Regular Strength -] 650 mg PO Q6H PRN #0 tablet Acetaminophen [Tylenol .Regular Strength -] 650 mg PO Q6H PRN #0 tablet Cetirizine HCl [Zyrtec -] 10 mg PO DAILY PRN #0 10/12/16 Docusate Sodium [Colace -] 100 mg PO DAILY capsule 10/12/16 Docusate Sodium [Colace -] 100 mg PO DAILY capsule 10/12/16 FENTANYL 12mcg PATCH [DURAGESIC 12mcg PATCH -] 1 patch TD Q72H #30 patch.td72 MDD 1 10/12/16 Pantoprazole Sodium [Protonix -] 20 mg PO DAILY #14 tablet.ec 10/12/16 Prednisone 10 mg PO AM #20 tablet 10/12/16
--- NOTE | 2016-10-12 14:31 | CONSULT ---
Consult - text type - Consultation Consultation Note: CC: Left shoulder pain HPI: This is an 86-year-old woman as admitted to the hospital with complaint of left shoulder pain, which was acute in onset. The pain was associated with a limited range of motion in her shoulder. She was reportedly taking Percocet 10/ 325, 4 tablets a day, which was drowsy without any significant improvement in her pain. He had an MRI, left shoulder at the hospital which revealed findings suspicious of septic arthritis. She had been started on fentanyl g patch in the interim, which significantly helped her shoulder pain. She was involved surgery and was recommended. Past medical history:arthritis, dementia Physical exam: Limited abduction, adduction, internal rotation of the left shoulder. Tenderness on palpation over the subacromial bursa on the left. assessment: 1. Left shoulder pain 2. Left shoulder impingement plan: 1. on my evaluation, she was tolerating her fentanyl patch, right without any drowsiness.. She also reported good pain control with a Duragesic patch. Recommend continuing Duragesic patch at 12 g upon discharge. 2. followup with me in the clinic in 2-3 weeks after discharge. 3. Activity as tolerated. 4. Thank you for this consult.
[2016-10-12] MEDS ORDERED: ATORVASTATIN CA 20 MG TABLET (FP) PO SCH (22:00)
[2016-10-13] MEDS ORDERED: fentaNYL 12mcg/hr PATCH.TD72 TD SCH (16:30)
== END 2016-10-12 14:41 | disposition home health service (06) | DRG 517 ==
LOC: JER 15:01 → UNDOADMIN 19:15 → JERBED 19:15 → J5S 21:13
PROVIDERS: ADMIT Internal Medicine; ATTEND Internal Medicine
PROC: 0R9K3ZX Drainage of Left Shoulder Joint, Percutaneous Approach, Diagnostic (ICD-10-PCS; 2016-10-08)
PROC: 03BT3ZX Excision of Left Temporal Artery, Percutaneous Approach, Diagnostic (ICD-10-PCS; principal; 2016-10-10 13:15)
DX: M25.512 Pain in left shoulder (principal); E86.0 Dehydration; I10 Essential (primary) hypertension; G30.9 Alzheimer's disease, unspecified; F02.80 Dementia in other diseases classified elsewhere, unspecified severity, without behavioral disturbance, psychotic disturbance, mood disturbance, and anxiety; M54.2 Cervicalgia
CPT/HCPCS: 36415; 71010-TC; 73218-TC; 80053; 80076; 81003; 81015; 82085; 82140; 82550; 82607; 82728; 83540; 83880; 84155; 84156; 84157; 84165; 84443; 85025; 85610; 85651; 85730; 86038; 86140; 86225; 86431; 86593; 86618; 86850; 86900; 86901; 87040; 87070; 87075; 87086; 87205; 88305-TC; 93005; 93010; 94760; 97116-GP; 97161-GP; 99283-25; J1644